=== PATIENT | female | born 1935 | race Caucasian/White ===

== ENCOUNTER 2017-12-22 05:55 | Inpatient (IN) | payer MEDICARE, OTHER ==
[~2017-12-22] VITALS: Ht 167.6 cm; Wt 99.8 kg
[2017-12-22] MEDS ORDERED: ONDANSETRON ODT 4 MG TAB PO ONE (06:45)
[2017-12-22] MEDS ORDERED: HYDROmorphone HCL 2 MG/ML VL IV ONE (06:45)
[2017-12-22 07:14] LABS: Basophils # (auto) 0 uL; Basophils % (auto) 0.3 % (0.0-2.0); Eosinophils # (auto) 0.1 uL; Eosinophils % (auto) 0.4 % (0.0-7.0); Hematocrit 40.5 % (36.0-46.0); Hemoglobin 13.7 g/dL (12.2-16.2); Lymphocytes # (auto) 0.7 uL; Lymphocytes % (auto) 4.4 % (10.0-50.0); Mean Corpuscular Hemoglobin 32.7 pg (28.0-32.0); Mean Corpuscular Hgb Conc. 33.7 g/dL (32.0-36.0); Mean Corpuscular Volume 96.9 fL (80.0-100.0); Monocytes # (auto) 1.2 uL; Monocytes % (auto) 7.7 % (0.0-12.0); Neutrophils # (auto) 13.7 uL; Neutrophils % (auto) 87.2 % (37.0-80.0); Platelet Count (auto) 243 10^3/uL (140-450); Red Blood Cells 4.18 10^6/uL (4.0-5.20); Red Cell Distribution Width 12.1 % (11.8-14.3); White Blood Cell 15.6 10^3/uL (4.4-10.8)
[2017-12-22 07:34] LABS: Alanine Aminotransferase 19 U/L (13-56); Albumin 3.5 g/dL (3.4-5.0); Alkaline Phosphatase 105 U/L (45-117); Anion Gap 9 (5-15); Aspartate Aminotransferase 12 U/L (15-37); BUN/Creatinine Ratio 24.4; Bilirubin, Total 0.9 mg/dL (0.2-1.0); Blood Urea Nitrogen 19 mg/dL (7-18); Carbon Dioxide 24 mmol/L (21-32); Chloride 102 mmol/L (98-107); GFR African American 91 mL/min; GFR Non-African American 75 mL/min; Glucose 152 mg/dL (74-106); Lipase 59 U/L (73-393); Potassium 3.8 mmol/L (3.5-5.1); Sodium 135 mmol/L (136-145); Total Protein 7.7 g/dL (6.4-8.2)
[2017-12-22] MEDS ORDERED: PROMETHAZINE HCL 25 MG/ML 1ML IV ONE (08:15)
[2017-12-22 08:32] LABS: Urine Bacteria FEW /hpf (None Seen); Urine Blood 2+ /uL (Negative); Urine Budding Yeast FEW /hpf (None Seen); Urine Mucus FEW (None Seen); Urine Specific Gravity 1.026 (1.001-1.035); Urine WBC 12 /hpf (0 - 5)
[2017-12-22] MEDS ORDERED: cefTRIAXone 1GM/10ml IVPUSH 10 ML IV ONE (10:00)
[2017-12-22] MEDS ORDERED: AZITHROMYCIN 500MG/ 250ML 250 ML IV ONE (10:00)
[2017-12-22] MEDS ORDERED: ACETAMINOPHEN 325 MG TAB PO PRN (12:15)
[2017-12-22] MEDS ORDERED: ONDANSETRON HCL 4 MG/2 ML VIAL IV PRN (12:15)
[2017-12-22] MEDS ORDERED: OXYCODONE W/ ACETAMINOPHEN 5/325MG TABLET PO PRN ×2 (12:15→12:30)
[2017-12-22] MEDS ORDERED: TEMAZEPAM 15 MG CAP PO PRN (12:15)
[2017-12-22] MEDS ORDERED: NITROGLYCERIN 0.4 MG SL TAB SL PRN (12:15)
[2017-12-22] MEDS ORDERED: PANTOPRAZOLE 40 MG/10 ML VIAL IV ONE (12:15)
[2017-12-22] MEDS ORDERED: DOCUSATE SOD 100 MG CAP PO PRN (12:15)
[2017-12-22] MEDS ORDERED: MORPHINE SULFATE 4 MG/ML SYR/VIAL IV PRN ×2 (12:15)
[2017-12-22] MEDS ORDERED: DEXTROSE (50%) 50ML SYRG IV PRN (12:30)
[2017-12-22] MEDS ORDERED: VANCOMYCIN PER PHARMACY 0 MG IV SCH (12:30)
[2017-12-22] MEDS ORDERED: VANCOMYCIN 1GM/250ML 250 ML IV ONE (12:45)
[2017-12-22] MEDS: SODIUM CHLORIDE 0.9% 1,000 ML IV SCH ×2 (12:50→22:27)
[2017-12-22] MEDS: GABAPENTIN 400 MG CAP PO SCH ×2 (14:23→22:27)
[2017-12-22] MEDS: ACCU-CHEK COMFORT CURVE STRIP VI SCH ×2 (17:00→22:27)
[2017-12-22] MEDS: InsuLIN REG 1unit/0.01ml Soln (100units/ml) SC SCH ×2 (17:00→22:00)
[2017-12-22] MEDS ORDERED: APIX2.5T OR (21:11)
[2017-12-22] MEDS: FAMOTIDINE 20 MG TAB PO SCH (22:27)
[2017-12-22 23:24] VITALS: BP 107/64
[2017-12-23] MEDS ORDERED: SODIUM CHLORIDE 0.9% 500 ML IV ONE
[2017-12-23 00:28] VITALS: BP 118/64
[2017-12-23] MEDS ORDERED: METOPROLOL TARTRATE 25 MG TAB PO ONE (00:30)
[2017-12-23] MEDS ORDERED: VANCOMYCIN HCL 1000 MG VL ONE (01:03)
[2017-12-23] MEDS: VANCOMYCIN 750 MG in D5W 5% 250 ML IV SCH ×2 (01:13→13:00)
[2017-12-23 05:29] VITALS: BP 138/60
[2017-12-23] MEDS: ACCU-CHEK COMFORT CURVE STRIP VI SCH ×2 (06:32→14:00)
[2017-12-23] MEDS: GABAPENTIN 400 MG CAP PO SCH ×2 (06:32→14:00)
[2017-12-23] MEDS: InsuLIN REG 1unit/0.01ml Soln (100units/ml) SC SCH ×2 (06:33→11:30)
[2017-12-23 06:55] LABS: Basophils # (auto) 0 uL; Basophils % (auto) 0.4 % (0.0-2.0); Eosinophils # (auto) 0.1 uL; Eosinophils % (auto) 0.7 % (0.0-7.0); Hematocrit 34.8 % (36.0-46.0); Hemoglobin 11.4 g/dL (12.2-16.2); Lymphocytes # (auto) 0.9 uL; Lymphocytes % (auto) 7.8 % (10.0-50.0); Mean Corpuscular Hemoglobin 32.2 pg (28.0-32.0); Mean Corpuscular Hgb Conc. 32.9 g/dL (32.0-36.0); Monocytes # (auto) 1.7 uL; Monocytes % (auto) 14.2 % (0.0-12.0); Neutrophils # (auto) 9.3 uL; Neutrophils % (auto) 76.9 % (37.0-80.0); Nucleated Red Blood Cells % 0.1 %; Platelet Count (auto) 213 10^3/uL (140-450); Red Blood Cells 3.55 10^6/uL (4.0-5.20); Red Cell Distribution Width 12.4 % (11.8-14.3); White Blood Cell 12.1 10^3/uL (4.4-10.8)
[2017-12-23 07:23] LABS: Albumin 2.6 g/dL (3.4-5.0); BUN/Creatinine Ratio 22.4; Calcium 8.3 mg/dL (8.5-10.1)
[2017-12-23 07:28] LABS: Bilirubin, Total 0.8 mg/dL (0.2-1.0); Total Protein 6.5 g/dL (6.4-8.2)
[2017-12-23 09:00] VITALS: BP 121/56
[2017-12-23] MEDS ORDERED: cefTRIAXone 1GM/10ml IVPUSH 10 ML IV SCH (09:00)
[2017-12-23] MEDS: FAMOTIDINE 20 MG TAB PO SCH (09:38)
[2017-12-23] MEDS ORDERED: METOPROLOL TARTRATE 25 MG TAB PO SCH (10:00)
[2017-12-23] MEDS ORDERED: MULTIPLE VITAMIN TAB PO SCH (10:00)
[2017-12-23] MEDS ORDERED: PANTOPRAZOLE 40 MG/10 ML VIAL IV SCH (10:00)
[2017-12-23] MEDS ORDERED: APIXABAN 5 MG TAB PO SCH (10:00)
[2017-12-23 13:00] VITALS: BP 118/56
[2017-12-23 15:22] VITALS: BP 121/64
== END 2017-12-23 16:06 | disposition home or self-care (01) | DRG 871 ==
LOC: EDBD 05:55 → ER 06:02 → TELE 06:03 → TELE-CENTR 17:23
PROVIDERS: ADMIT Internal Medicine; ATTEND Internal Medicine
DX: A41.9 Sepsis, unspecified organism (principal); J18.9 Pneumonia, unspecified organism; E11.21 Type 2 diabetes mellitus with diabetic nephropathy; D68.69 Other thrombophilia; E11.65 Type 2 diabetes mellitus with hyperglycemia; E11.22 Type 2 diabetes mellitus with diabetic chronic kidney disease; I48.0 Paroxysmal atrial fibrillation; N10 Acute pyelonephritis; I48.92 Unspecified atrial flutter; E87.1 Hypo-osmolality and hyponatremia; E86.0 Dehydration; G89.4 Chronic pain syndrome; I12.9 Hypertensive chronic kidney disease with stage 1 through stage 4 chronic kidney disease, or unspecified chronic kidney disease; N18.2 Chronic kidney disease, stage 2 (mild); K57.90 Diverticulosis of intestine, part unspecified, without perforation or abscess without bleeding; J98.4 Other disorders of lung; M79.7 Fibromyalgia; Z83.3 Family history of diabetes mellitus
CPT/HCPCS: 36415; 71045; 74176; 80053; 81001; 82962; 83036; 83605; 83690; 83880; 84443; 84484; 85025; 87040; 87086; 93005; 96365; 96367; 96375; C9113; J7060; Q0162